=== PATIENT | female | born 1970 | race Caucasian/White ===

== ENCOUNTER 2019-03-28 18:23 | Emergency (ER) | payer MEDICAID, OTHER ==
[~2019-03-28] VITALS: Ht 177.8 cm; Wt 75.5 kg
[2019-03-28] MEDS ORDERED: HYDROcodone/APAP 5/325 TABLET ONE (19:22)
[2019-03-28] MEDS ORDERED: HYDROcodone/APAP 5/325 TABLET PO ONE (19:30)
[2019-03-28 19:55] VITALS: BP 128/72
== END 2019-03-28 19:56 | disposition home or self-care (01) ==
LOC: ED 19:15
DX: K08.89 Other specified disorders of teeth and supporting structures (principal)
CPT/HCPCS: 99283

== ENCOUNTER 2019-06-02 18:34 | Emergency (ER) | payer MEDICAID ==
[~2019-06-02] VITALS: Ht 177.8 cm; Wt 79.8 kg
[2019-06-02 18:38] VITALS: BP 119/80
--- NOTE | 2019-06-02 18:58 | NUR ---
REPORT FROM CHAN CROOKS, ASSUMED CARE OF PATIENT AT THIS TIME.
--- NOTE | 2019-06-02 19:50 | NUR ---
Patient/Caregiver given discharge instructions and they have confirmed that they understand the instructions. Patient ambulatory with steady gait.
== END 2019-06-02 19:51 | disposition home or self-care (01) ==
LOC: ED 18:52
DX: K08.89 Other specified disorders of teeth and supporting structures (principal)
CPT/HCPCS: 99283

== ENCOUNTER 2021-07-21 20:17 | Emergency (ER) | payer MEDICAID ==
[~2021-07-21] VITALS: Ht 177.8 cm; Wt 82.0 kg
[2021-07-21 20:22] VITALS: BP 113/71
--- NOTE | 2021-07-21 20:29 | NUR ---
EKG DONE IN TRIAGE.
[2021-07-21 21:13] LABS: BASOPHILS % (AUTO) 1 % (0-1); EOSINOPHILS % (AUTO) 2 % (1-7); LYMPHOCYTES % (AUTO) 31 % (22-44); MEAN CORPUSCULAR HEMOGLOBIN 27.4 pg (27.0-34.8); MEAN CORPUSCULAR HGB CONC 33.2 g/dL (32.4-35.8); MEAN PLATELET VOLUME 7.7 fL (7.4-10.4); MONOCYTES % (AUTO) 7 % (2-9); NEUTROPHILS % (AUTO) 59 % (42-75); PLATELET COUNT 286 x10^3/uL (130-400); RED BLOOD COUNT 4.41 x10^6/uL (3.82-5.3); RED CELL DISTRIBUTION WIDTH 17.3 % (9.6-15.2)
[2021-07-21 21:22] LABS: ALANINE AMINOTRANSFERASE 95 U/L (12-78); ALBUMIN 3.6 g/dL (3.4-5.0); ANION GAP 7 mmol/L (5-15); CALCIUM 8.6 mg/dL (8.5-10.1); CHLORIDE 107 mmol/L (98-107); CREATININE 0.85 mg/dL (0.55-1.02)
[2021-07-21 21:26] LABS: ALKALINE PHOSPHATASE 111 U/L (45-117); BILIRUBIN,TOTAL 0.4 mg/dL (0.2-1.0); TOTAL PROTEIN 7.6 g/dL (6.4-8.2); TROPONIN I < 0.015 ng/mL (0.000-0.045)
--- NOTE | 2021-07-21 22:29 | NUR ---
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 LYING ON STRETCHER IN NO ACUTE DISTRESS. ENDORSES SHARP LEFT SIDED CP ONSET 3PM WHILE AT WORK. NO STRENUOUS EXERCISE OR ACTIVITY. CP GRADUALLY WORSENED, W/ WORST PAIN AROUND 7PM UPON PRESENTATION TO ED. PT DENIED ANY SYNCOPE, OR DIAPHORESIS. PT ENDORSES RADIATION TO UPPER LEFT JAW. PT RA SATS WNL. PT DENIES ANY CARDIAC HX. PT FAMILY HX REMARKABLE FOR CARDIAC DIAGNOSES. PT PAIN FREE AT THIS TIME.
--- NOTE | 2021-07-21 22:55 | NUR ---
Patient/Caregiver given discharge instructions and they have confirmed that they understand the instructions. Patient ambulatory with steady gait. NAD, all questions answered appropriately, denies additional needs at this time. No personal belongings left in room after discharge.
== END 2021-07-21 22:56 | disposition home or self-care (01) ==
LOC: ED 22:51
DX: J06.9 Acute upper respiratory infection, unspecified (principal); R07.89 Other chest pain; Z20.822 Contact with and (suspected) exposure to COVID-19; F17.200 Nicotine dependence, unspecified, uncomplicated
CPT/HCPCS: 71045; 80053; 84484; 85025; 85379; 93005; 99285; U0003; U0005